=== PATIENT | male | born 1975 | race Caucasian/White ===

== ENCOUNTER 2019-05-23 14:49 | Emergency (ER) | payer SELFPAY ==
[~2019-05-23] VITALS: Ht 177.8 cm; Wt 90.7 kg
--- NOTE | 2019-05-23 14:49 | Emergency Room Report ---
History of Present Illness General Chief Complaint: Abdominal Pain Source: Patient, [employer] Present Illness HPI Patient is a 44-year-old male brought in by EMS after increased abdominal pain. He reports having increased vomiting as well as diarrhea. He reports having prior history of esophagectomy with gastric pull-through for esophageal cancer. He reports recent alcohol earlier in the day. He states his been having multiple episodes of nonbloody diarrhea associated with some vomiting. He denies any marijuana use. He reports having some continued drainage from surgical wound from approximately 2 months ago. His only medications include olanzapine as well as H2-aminta. Patient denies any hematemesis. He denies any chest discomfort. Allergies: Coded Allergies: PROCHLORPERAZINE (Verified Allergy, Unknown, 05/23/19) Patient History Past Medical History: see triage record Reviewed Nursing Documentation: PMH: Agreed; PSxH: Agreed Nursing Documentation-PMH Past Medical History: No History, Except For Hx Gastrointestinal Problems: Yes - GASTRIC CANCER Review of Systems All Other Systems: negative except mentioned in HPI Physical Exam Vital Signs Date Time Temp Pulse Resp B/P (MAP) Pulse Ox O2 Delivery O2 Flow Rate FiO2 05/23/19 14:31 98.1 108 18 113/81 (92) 98 Room Air Sp02 EP Interpretation: reviewed, normal General Appearance: normal inspection, alert, GCS 15, mild distress Head: atraumatic ENT: normal ENT inspection, hearing grossly normal, normal voice Neck: normal inspection, full range of motion, supple, no bony tend Respiratory: normal inspection, chest non-tender, lungs clear, normal breath sounds, no respiratory distress, no retraction, no wheezing Cardiovascular #1: regular rate, rhythm, no edema Gastrointestinal: normal bowel sounds, non tender, soft, no guarding, other - slight drainage from abdominal wall incision which is mostly healed Genitourinary: no CVA tenderness Musculoskeletal: normal inspection, back normal, normal range of motion Neurologic: normal inspection, alert, responsive, speech normal Psychiatric: normal inspection, judgement/insight normal, mood/affect normal Medical Decision Making Diagnostic Impression: Primary Impression: Chest pain Additional Impression: Alcohol abuse ER Course Patient presented for chest pain. Differential diagnosis included but was not limited to acute coronary syndrome, pulmonary embolism, pneumonia, aortic dissection, shingles, pneumothorax, aortic dissection, esophageal rupture, pericarditis. EKG showed normal sinus rhythm without acute ST or T wave changes. Patient appears to have chest pain which may be related to recent alcohol abuse. Patient was given medications for pain with some improvement. Patient subsequently stated he felt better and wanted to leave the hospital without completion of testing. The patient was advised risk benefits alternatives of leaving AGAINST MEDICAL ADVICE and he indicated understanding and all questions are answered patient still continued want to leave and signed AGAINST MEDICAL ADVICE. Despite risks including but not limited to disability and worsening of current lifestyle. Patient was advised he could return at any time. Patient appears to have capacity despite alcohol at this time. Labs Test 05/23/19 15:16 White Blood Count 7.8 K/UL (4.8-10.8) Red Blood Count 5.32 M/UL (4.70-6.10) Hemoglobin 13.9 G/DL (14.2-18.0) Hematocrit 42.2 % (42.0-52.0) Mean Corpuscular Volume 79 FL (80-99) Mean Corpuscular Hemoglobin 26.1 PG (27.0-31.0) Mean Corpuscular Hemoglobin Concent 32.9 G/DL (32.0-36.0) Red Cell Distribution Width 15.1 % (11.6-14.8) Platelet Count 249 K/UL (150-450) Mean Platelet Volume 7.8 FL (6.5-10.1) Neutrophils (%) (Auto) 52.9 % (45.0-75.0) Lymphocytes (%) (Auto) 33.5 % (20.0-45.0) Monocytes (%) (Auto) 8.4 % (1.0-10.0) Eosinophils (%) (Auto) 4.2 % (0.0-3.0) Basophils (%) (Auto) 1.0 % (0.0-2.0) Prothrombin Time 10.8 SEC (9.30-11.50) Prothromb Time International Ratio 1.0 (0.9-1.1) Activated Partial Thromboplast Time 26 SEC (23-33) Urine Color Pale yellow Urine Appearance Clear Urine pH 8 (4.5-8.0) Urine Specific [place] 1.010 (1.005-1.035) Urine Protein Negative (NEGATIVE) Urine Glucose (UA) Negative (NEGATIVE) Urine Ketones Negative (NEGATIVE) Urine Blood Negative (NEGATIVE) Urine Nitrite Negative (NEGATIVE) Urine Bilirubin Negative (NEGATIVE) Urine Urobilinogen Normal MG/DL (0.0-1.0) Urine Leukocyte Esterase 1+ (NEGATIVE) Urine RBC 0 /HPF (0 - 0) Urine WBC 0-2 /HPF (0 - 0) Urine Squamous Epithelial Cells None /LPF (NONE/OCC) Urine Bacteria Occasional /HPF (NONE) Sodium Level 142 MMOL/L (136-145) Potassium Level 3.4 MMOL/L (3.5-5.1) Chloride Level 107 MMOL/L (98-107) Carbon Dioxide Level 22 MMOL/L (21-32) Anion Gap 13 mmol/L (5-15) Blood Urea Nitrogen 7 mg/dL (7-18) Creatinine 0.9 MG/DL (0.55-1.30) Estimat Glomerular Filtration Rate > 60 mL/min (>60) Glucose Level 100 MG/DL (74-106) Calcium Level 8.4 MG/DL (8.5-10.1) Total Bilirubin 0.3 MG/DL (0.2-1.0) Aspartate Amino Transf (AST/SGOT) 27 U/L (15-37) Alanine Aminotransferase (ALT/SGPT) 25 U/L (12-78) Alkaline Phosphatase 157 U/L (46-116) Troponin I 0.000 ng/mL (0.000-0.056) Total Protein 8.0 G/DL (6.4-8.2) Albumin 3.5 G/DL (3.4-5.0) Globulin 4.5 g/dL Albumin/Globulin Ratio 0.8 (1.0-2.7) Lipase 158 U/L (73-393) Urine Opiates Screen Negative (NEGATIVE) Urine Barbiturates Screen Negative (NEGATIVE) Phencyclidine (PCP) Screen Negative (NEGATIVE) Urine Amphetamines Screen Negative (NEGATIVE) Urine Benzodiazepines Screen Negative (NEGATIVE) Urine Cocaine Screen Negative (NEGATIVE) Urine Marijuana (THC) Screen Negative (NEGATIVE) Serum Alcohol 234 mg/dL EKG Diagnostic Results Rate: normal - 99 Rhythm: NSR ST Segments: no acute changes Last Vital Signs Date Time Temp Pulse Resp B/P (MAP) Pulse Ox O2 Delivery O2 Flow Rate FiO2 05/23/19 14:31 98.1 108 18 113/81 (92) 98 Room Air Disposition: AGAINST MEDICAL ADVICE Condition: Stable Hemal Pozo MD May 23, 2019 14:49
[2019-05-23] MEDS ORDERED: Metoclopramide 10mg/2ml Inj IVP ONE (15:00)
[2019-05-23 15:20] VITALS: BP 124/78
--- NOTE | 2019-05-23 15:20 | NUR ---
Note liya in EDM - 05/23/19 at 1931 by LILIBETH ED Nurse Note: Patient was brought in by [facility] [id number] complaining of abdominal pain and episodes of n/v for 2 days. Noted with surgical wound on his abdomen. Sligtly open with a tinged of dry blood. Patient stated that he had a surgery recently for hernial repair.
--- NOTE | 2019-05-23 15:20 | NUR ---
ED Nurse Note: Patient was brought in by [facility] [id number] complaining of abdominal pain and episodes of n/v for 2 days. Noted with surgical dehisced wound on his abdomen. Arrived to ER without dressing on his abdomen. Sligtly open approx 1.5 inches with a tinged of dry blood and faint yellow drainage. Patient stated that he had a surgery 2 months ago for hernial repair and its been remain open since then. Patient reports no fever or chills. Patient is alert and oriented x4. Regular and unlabored breathing noted. Spouse at the bedside.
[2019-05-23 15:30] VITALS: BP 126/95
[2019-05-23 15:30] LABS: EOSINOPHILS % (AUTO) 4.2 % (0.0-3.0); HEMATOCRIT 42.2 % (42.0-52.0); HEMOGLOBIN 13.9 G/DL (14.2-18.0); LYMPHOCYTES % (AUTO) 33.5 % (20.0-45.0); MEAN CORPUSCULAR VOLUME 79 FL (80-99); MONOCYTES % (AUTO) 8.4 % (1.0-10.0); NEUTROPHILS % (AUTO) 52.9 % (45.0-75.0); PLATELET COUNT 249 K/UL (150-450); RED BLOOD COUNT 5.32 M/UL (4.70-6.10); RED CELL DISTRIBUTION WIDTH 15.1 % (11.6-14.8); WHITE BLOOD COUNT 7.8 K/UL (4.8-10.8)
[2019-05-23 15:39] LABS: ANION GAP 13 mmol/L (5-15); BLOOD UREA NITROGEN 7 mg/dL (7-18); CALCIUM 8.4 MG/DL (8.5-10.1); CARBON DIOXIDE 22 MMOL/L (21-32); CHLORIDE 107 MMOL/L (98-107); CREATININE 0.9 MG/DL (0.55-1.30); POTASSIUM 3.4 MMOL/L (3.5-5.1); SODIUM 142 MMOL/L (136-145)
[2019-05-23 15:42] LABS: APPEARANCE,URINE CLEAR; BILIRUBIN, URINE NEGATIVE (NEGATIVE); COLOR,URINE PALE YELLOW; GLUCOSE, URINE (UA) NEGATIVE (NEGATIVE); KETONES,URINE NEGATIVE (NEGATIVE); LEUKOCYTE ESTERASE ,URINE 1+ (NEGATIVE); NITRITE,URINE NEGATIVE (NEGATIVE); PH,URINE 8 (4.5-8.0); PROTEIN,URINE NEGATIVE (NEGATIVE); UROBILINOGEN,URINE NORMAL MG/DL (0.0-1.0)
[2019-05-23 15:44] LABS: ALANINE AMINOTRANSFERASE 25 U/L (12-78); ALBUMIN 3.5 G/DL (3.4-5.0); ALBUMIN/GLOBULIN RATIO 0.8 (1.0-2.7); ALKALINE PHOSPHATASE 157 U/L (46-116); ASPARTATE AMINO TRANSFERASE 27 U/L (15-37); BILIRUBIN,TOTAL 0.3 MG/DL (0.2-1.0)
[2019-05-23] MEDS ORDERED: Morphine Sulfate 4mg/ml Inj (IV USE ONLY) IVP ONE (16:00)
--- NOTE | 2019-05-23 16:30 | NUR ---
ED Nurse Note: Patient resting in bed. No respiratory distress noted. No active vomiting noted.
--- NOTE | 2019-05-23 16:40 | NUR ---
ED Nurse Note: Patient ambulating along with his , wearing his T-shirt and was asking if he can go out from ER to make a phone call. Offered hospital phone and informed patient that he cannot go out with his IV on. Patient returned to his room and requested to remove IV and leave the hospital. ER MD informed.
--- NOTE | 2019-05-23 16:57 | NUR ---
AMA: SEE AMA FORM. RAYNE spoke to the patient. Patient wants to leave the hospital againist medical advice. Offered to remove IV when going to the ER room and nicotine patch but patient declined. Patient explained the risk and benefits but patient was adamant of leaving. Patient is alert and oriented x 4. Spose at bedside. Patient signed AMA form and left ER with a steady gait.
== END 2019-05-23 16:57 | disposition left against medical advice (07) ==
LOC: EDBD 14:49 → EMR 15:08
DX: F10.10 Alcohol abuse, uncomplicated (principal); R07.9 Chest pain, unspecified; Z85.00 Personal history of malignant neoplasm of unspecified digestive organ; Z88.8 Allergy status to other drugs, medicaments and biological substances
CPT/HCPCS: 36415; 80053; 80307; 81003; 83690; 84484; 85025; 85610; 85730; 93005; 96361; 96374; 96375; 99284; G0480; J2270; J2765; S0028; 80329